=== PATIENT | female | born 1980 | race Caucasian/White ===

== ENCOUNTER 2017-06-13 11:42 | Emergency (ER) | payer SELFPAY ==
[2017-06-13 11:50] VITALS: BP 135/71; BMI 36.0
--- NOTE | 2017-06-13 13:07 | DR.GENAD ---
HPI - PCP Primary Care Physician: GRANT GARIBAY - Complaint/Symptoms Chief Complaint Doctors Comments: Patient states that she purchased used bedding a few days ago and now she has these sores on her body. She states that they itch badly. Chief Complaint:: HANDS FEEL NUMB UP TO ELBOWS, ITCHING, SWELLING Self Treatment fo Chief Complaint: HYDCORTIZONE CREAM AND ANTIFUNGEL - Source History Provided: Patient - Mode of Arrival Mode of Arrival: Ambulatory - Timing Onset of Chief Complaint: 06/11/17 PMH - PMH Past Medical History: Yes Past Medical History: Seizures Past Surgical History: Yes Surgical History: - Family History History of Family Medical Conditions: Yes Family Medical History: Hypertension - Social History Does patient currently use any type of tobacco product: No Have you used tobacco products in the last 12 months: No Type of Tobacco Use: None Does any household member use tobacco: No Alcohol Use: None Do you use any recreational Drugs:: No Lives With: Spouse Lives Where: Home - infectious screening In the last 2 months have you had wt loss of >10#?: NO Have you had fever, night sweats or hemotysis?: No Have you traveled outside the country in the last 6 months?: No Isolation: Standard ROS - Review of Systems Eyes: No Symptoms Reported ENTM: No Symptoms Reported Respiratoy: No Symptoms Reported Cardiovascular: No Symptoms Reported Gastrointestinal/Abdominal: No Symptoms Reported Genitourinary: No Symptoms Reported Neurological: No Symptoms Reported Musculoskeletal: No Symptoms Reported Integumentary: No Symptoms Reported Hematologic/Lymphatic: No Symptoms Reported Endocrine: No Symptoms Reported Psychiatric: No Symptoms Reported All Other Systems: Reviewed and Negative PE - Vital Signs Vitals: Temperature 98 F Pulse Rate 100 Respiratory Rate 20 Blood Pressure 135/71 O2 Sat by Pulse Oximetry 97 - General Limitations: No Limitations General Appearance: Alert, In No Apparent Distress - Head Head Exam: Normal Inspection, Atraumatic - Eyes Eye exam: Normal Appearance, PERRL, EOMI - ENT ENT Exam: Normal Exam External Ear Exam: Normal External Inspection TM/Canal Exam: Bilateral Normal Nose Exam: Normal Nose Exam Mouth Exam: Normal Inspection Throat Exam: Normal Inspection - Neck Neck Exam: Normal Inspection - Chest Chest Inspection: Normal Inspection - Respiratory Respiratory Exam: Normal Lung Sounds Bilat Respiratory Exam: Bilateral Clear to Auscultation - Cardiovascular Cardiovascular Exam: Regular Rate - Abdominal Exam Abdominal Exam: Normal Inspection Abdominal Tenderness: negative: RUQ, RLQ, LUQ, LLQ, Epigastrium, Suprapubic, Diffuse, Mild, Moderate, Severe, Other - Extremities Extremities Exam: Normal Inspection, Full ROM - Back Back Exam: Normal Inspection - Neurologic Neurological Exam: Alert, Oriented X3, CN II-XII Intact - Psychiatric Psychiatric Exam: Normal Affect, Normal Mood - Skin Skin Exam: Warm, Dry, Rash (generalized excoriated papules on trunk and extremities) ROR - Labs Reviewed Result Diagrams: 06/13/17 14:15 06/13/17 14:15 Laboratory: WBC 7.6 X10^3/uL (3.6-10.0) 06/13/17 14:15 RBC 5.04 X10^6/uL (3.5-5.4) 06/13/17 14:15 Hgb 16.0 g/dL (12.0-16.0) 06/13/17 14:15 Hct 45.7 % (36.0-47.0) 06/13/17 14:15 MCV 90.7 fL (80.0-100.0) 06/13/17 14:15 MCH 31.8 pg (27.0-34.0) 06/13/17 14:15 MCHC 35.1 g/dL (33.0-35.0) H 06/13/17 14:15 RDW 12.0 % (11.6-16.5) 06/13/17 14:15 Plt Count 287 X10^3/uL (150.0-450.0) 06/13/17 14:15 MPV 9.0 fL (7.4-11.0) 06/13/17 14:15 Neut % 64.4 % (42.0-75.0) 06/13/17 14:15 Lymph % 24.0 % (21.0-51.0) 06/13/17 14:15 [place] % 8.4 % (0.0-13.0) 06/13/17 14:15 Eos % 2.2 % (0.9-2.9) 06/13/17 14:15 Baso % 1.0 % (0.2-1.0) 06/13/17 14:15 Neut # 4.9 x10^3/uL (2.2-4.8) H 06/13/17 14:15 Lymph # 1.8 X10^3/uL (1.3-2.9) 06/13/17 14:15 [place] # 0.6 x10^3/uL (0.3-0.8) 06/13/17 14:15 Eos # 0.2 x10^3/uL (0.0-0.2) 06/13/17 14:15 Baso # 0.1 X10^3/uL (0.0-0.1) 06/13/17 14:15 Absolute Nucleated RBC 0.1 /100WBC 06/13/17 14:15 ESR 4 MM/HOUR (0-20) 06/13/17 14:15 Sodium 140 mmol/L (136-145) 06/13/17 14:15 Corrected Sodium TNP 06/13/17 14:15 Potassium 3.6 mmol/L (3.5-5.1) 06/13/17 14:15 Chloride 104 mmol/L (98-107) 06/13/17 14:15 Carbon Dioxide 26.0 mmol/L (21-32) 06/13/17 14:15 BUN 7 mg/dL (7-18) 06/13/17 14:15 Creatinine 0.96 mg/dL (0.55-1.02) 06/13/17 14:15 Est GFR (MDRD) Af Amer > 60 (>60) 06/13/17 14:15 Est GFR (MDRD) Non-Af > 60 (>60) 06/13/17 14:15 Glucose 99 mg/dL (65-99) 06/13/17 14:15 Calcium 8.8 mg/dL (8.5-10.1) 06/13/17 14:15 - Diagnosis Discharge Problem: Insect bite Qualifiers: Encounter type: initial encounter Qualified Code(s): W57.XXXA - Bitten or stung by nonvenomous insect and other nonvenomous arthropods, initial encounter - Discharge Plan Condition: Stable Prescriptions: Cephalexin [KEFLEX CAP 500 MG *] 500 mg PO TID #21 cap Diphenhydramine HCl [BENADRYL 50 MG CAP *] 50 mg PO Q4-6H PRN #30 cap PRN Reason: Allergy/Itching - Follow ups/Referrals Follow ups/Referrals: NFD,None [Primary Care Provider] - 3 days - Instructions
[2017-06-13] MEDS ORDERED: BENADRYL INJ 50 MG VIAL IM ONE (13:09)
[2017-06-13] MEDS ORDERED: DECADRON INJ IM ONE (13:09)
[2017-06-13] MEDS ORDERED: DECADRON INJ ONE (13:17)
[2017-06-13] MEDS ORDERED: BENADRYL INJ 50 MG VIAL ONE (13:17)
[2017-06-13 13:32] LABS: BASOPHILS # (AUTO) 0.1 X10^3/uL (0.0-0.1); EOSINOPHILS # (AUTO) 0.2 x10^3/uL (0.0-0.2)
[2017-06-13 13:38] LABS: MEAN CORPUSCULAR HGB CONC 35.1 g/dL (33.0-35.0); MONOCYTES # (AUTO) 0.6 x10^3/uL (0.3-0.8)
[2017-06-13 14:23] LABS: EOSINOPHILS % (AUTO) 2.2 % (0.9-2.9); HEMATOCRIT 45.7 % (36.0-47.0); LYMPHOCYTES # (AUTO) 1.8 X10^3/uL (1.3-2.9); MEAN CORPUSCULAR HEMOGLOBIN 31.8 pg (27.0-34.0); MEAN CORPUSCULAR VOLUME 90.7 fL (80.0-100.0); MONOCYTES % (AUTO) 8.4 % (0.0-13.0); NEUTROPHILS # (AUTO) 4.9 x10^3/uL (2.2-4.8); NEUTROPHILS % (AUTO) 64.4 % (42.0-75.0); PLATELET COUNT 287 X10^3/uL (150.0-450.0); RED BLOOD COUNT 5.04 X10^6/uL (3.5-5.4); WHITE BLOOD COUNT 7.6 X10^3/uL (3.6-10.0)
[2017-06-13 14:27] LABS: ERYTHROCYTE SEDIMENTATION RATE 4 MM/HOUR (0-20)
[2017-06-13 14:31] LABS: BLOOD UREA NITROGEN 7 mg/dL (7-18); CALCIUM 8.8 mg/dL (8.5-10.1); CHLORIDE 104 mmol/L (98-107); CREATININE 0.96 mg/dL (0.55-1.02); SODIUM 140 mmol/L (136-145); eGFR BLACK RACES > 60 (>60); eGFR NON BLACK RACES > 60 (>60)
== END 2017-06-13 15:10 | disposition home or self-care (01) ==
LOC: ER 11:42
DX: L29.9 Pruritus, unspecified (principal); W57.XXXA Bitten or stung by nonvenomous insect and other nonvenomous arthropods, initial encounter
CPT/HCPCS: 36415; 80048; 85025; 85652; 90471; 90472; 96372; 99282; J1100; J1200

== ENCOUNTER 2017-08-26 01:43 | Emergency (ER) | payer SELFPAY ==
[2017-08-26 01:52] VITALS: BP 140/86; BMI 36.0
[2017-08-26] MEDS ORDERED: BENADRYL INJ 50 MG VIAL IM ONE (02:58)
--- NOTE | 2017-08-26 02:58 | DR.GENAD ---
HPI - PCP Primary Care Physician: PHOENIX BURNS - Complaint/Symptoms Chief Complaint Doctors Comments: Patient presents with complaint of bugs on her floor coming out of the wall. She states that the bugs have caused a rash over her body. Chief Complaint:: "WE APPLIED RIVERO WATER SEAL ON [place] TODAY AT 3 30P 4 00P AND I LAYED DOWN AND WENT TO SLEEP ON A PORTABLE BED IN THE LIVING ROOM FOR ABOUT 2 HOURS AND I WOKE UP AND I HAD THE SORES ALL OVER ME." - Source History Provided: Patient - Mode of Arrival Mode of Arrival: Ambulatory - Timing Onset of Chief Complaint: 08/25/17 PMH - PMH Past Medical History: Yes Past Medical History: Seizures Past Medical History Comment: LIVER CANCER Past Surgical History: Yes Surgical History: - Family History History of Family Medical Conditions: Yes Family Medical History: Hypertension - Social History Type of Tobacco Use: Cigarettes Alcohol Use: None Do you use any recreational Drugs:: No Lives With: Family Lives Where: Home - infectious screening Have you traveled outside the country in the last 6 months?: No Isolation: Standard ROS - Review of Systems Eyes: No Symptoms Reported ENTM: No Symptoms Reported Respiratoy: No Symptoms Reported Cardiovascular: No Symptoms Reported Gastrointestinal/Abdominal: No Symptoms Reported Genitourinary: No Symptoms Reported Neurological: No Symptoms Reported Musculoskeletal: No Symptoms Reported Integumentary: Rash Hematologic/Lymphatic: No Symptoms Reported Endocrine: No Symptoms Reported Psychiatric: No Symptoms Reported All Other Systems: Reviewed and Negative PE - Vital Signs Vitals: Temperature 98.1 F Pulse Rate 118 Respiratory Rate 22 Blood Pressure 140/86 O2 Sat by Pulse Oximetry 95 - General General Appearance: Alert, Anxious - Head Head Exam: Normal Inspection, Atraumatic - Eyes Eye exam: Normal Appearance, PERRL, EOMI - ENT ENT Exam: Normal Exam External Ear Exam: Normal External Inspection TM/Canal Exam: Bilateral Normal Nose Exam: Normal Nose Exam Mouth Exam: Normal Inspection Throat Exam: Normal Inspection - Neck Neck Exam: Normal Inspection - Chest Chest Inspection: Normal Inspection - Respiratory Respiratory Exam: Normal Lung Sounds Bilat Respiratory Exam: Bilateral Clear to Auscultation - Cardiovascular Cardiovascular Exam: Regular Rate - Abdominal Exam Abdominal Exam: Normal Inspection Abdominal Tenderness: negative: RUQ, RLQ, LUQ, LLQ, Epigastrium, Suprapubic, Diffuse, Mild, Moderate, Severe, Other - Extremities Extremities Exam: Normal Inspection, Full ROM - Back Back Exam: Normal Inspection - Neurologic Neurological Exam: Alert, Oriented X3, CN II-XII Intact - Psychiatric Psychiatric Exam: Anxious - Skin Skin Exam: Warm, Dry, Rash (macularpapular rash with various states of healing, crusting with central clearling) - Diagnosis Discharge Problem: Dermatitis - Discharge Plan Condition: Stable - Follow ups/Referrals Follow ups/Referrals: NFD,None [Primary Care Provider] - 3 days - Instructions
[2017-08-26] MEDS ORDERED: BENADRYL INJ 50 MG VIAL ONE (03:07)
== END 2017-08-26 03:27 | disposition home or self-care (01) ==
LOC: ER 01:43
DX: L30.8 Other specified dermatitis (principal)
CPT/HCPCS: 96372; 99282; J1200